=== PATIENT | female | born 1960 | race Caucasian/White ===

== ENCOUNTER 2016-06-06 22:38 | Emergency (ER) | payer BC ==
[2016-06-06] MEDS ORDERED: KETOROLAC TROMETHAMINE 30 MG/1 ML VIAL IM ONE (22:41)
[2016-06-06] MEDS ORDERED: KETOROLAC TROMETHAMINE 30 MG/1 ML VIAL ONE (22:45)
--- NOTE | 2016-06-06 22:50 | PDOC ---
History of Present Illness - General Chief Complaint: Bone Injury Stated Complaint: LEFT SHOULDER INJURY Time Seen by Provider: 06/06/16 22:40 History Source: Patient Exam Limitations: No Limitations - History of Present Illness Initial Comments: 06/06/16 22:45 56 Y F Osteoporosis and hypothyroid. fell 2/2 ice. no loc. landed on chest and lt arm. c/o pain at sites. in ed, in nad but in pain. denies head ache. vomiting. no chest pain. no sob. no parenthesis Occurred: reports: just prior to arrival Past History - Past Medical History Allergies/Adverse Reactions: Allergies Allergy/AdvReac Type Severity Reaction Status Date / Time erythromycin base Allergy Verified 06/06/16 22:42 [Erythromycin Base] propofol Allergy Verified 06/06/16 22:42 Home Medications: Ambulatory Orders Levothyroxine [Synthroid -] 100 mcg PO DAILY 01/12/12 Venlafaxine HCl [Effexor] 37.5 mg PO DAILY 01/12/12 Calcium Carbonate [Calcium] 1,200 mg PO HS 06/30/14 Ondansetron HCl [Zofran] 4 mg PO Q6H PRN #15 tablet 10/14/15 Asthma: Yes Psychiatric Problems: Yes (anxiety/depression) Thyroid Disease: Yes (HYPOTHYROIDISM) - Surgical History Appendectomy: Yes (02/11) - Psycho/Social/Smoking Cessation Hx Anxiety: No Suicidal Ideation: No Smoking Status: No Smoking History: Never smoked Number of Cigarettes Smoked Daily: 0 Hx Alcohol Use: No Drug/Substance Use Hx: No Substance Use Type: None Review of Systems - Review of Systems Able to Perform ROS?: Yes Is the patient limited Sinhala proficient: No Constitutional: No: Symptoms Reported HEENTM: No: Symptoms Reported Respiratory: No: Symptoms reported Cardiac (ROS): No: Symptoms Reported ABD/GI: No: Symptoms Reported Musculoskeletal: Yes: See HPI Neurological: No: Symptoms reported All Other Systems: Reviewed and Negative *Physical Exam - Physical Exam General Appearance: Yes: Nourished, Appropriately Dressed. No: Apparent Distress HEENT: positive: EOMI, SHARON Neck: positive: Supple. negative: Tender Respiratory/Chest: positive: Chest Tender (mild. sternal area no ecchymosis), Lungs Clear, Normal Breath Sounds. negative: Respiratory Distress Cardiovascular: positive: Regular Rhythm, Regular Rate Gastrointestinal/Abdominal: positive: Normal Bowel Sounds, Soft Musculoskeletal: positive: Normal Inspection. negative: Vertebral Tenderness Extremity: positive: Normal Capillary Refill, Normal Inspection. negative: Normal Range of Motion (ltd ROM lt arm 2/2 pain no obvipus deformity) Neurologic: positive: optical advisor II-XII NML intact, Fully Oriented, Alert, Normal Mood/ Affect, Normal Response, Motor Strength 5/5 ED Treatment Course - RADIOLOGY Radiology Studies Ordered: Category Date Time Status CHEST PA & LAT [RAD] Stat Radiology 06/06/16 22:41 Ordered HUMERUS-LEFT [RAD] Stat Radiology 06/06/16 22:40 Ordered SHOULDER-LEFT [RAD] Stat Radiology 06/06/16 22:40 Ordered *DC/Admit/Observation/Transfer Diagnosis at time of Disposition: Closed fracture of head of humerus Qualifiers: Encounter type: initial encounter Laterality: left Qualified Code(s): S42.292A - Other displaced fracture of upper end of left humerus, initial encounter for closed fracture - Discharge Dispostion Disposition: HOME Condition at time of disposition: Good Admit: No - Patient Instructions Additional Instructions: IBUPROFEN, 600 MG 3 TIMES A DAY USE SLING AT ALL TIMES REST ARM AT NIGHT PROMPTED BY PILLOWS ICE TO AREA ON AND OFF TONIGHT AND IN AM SEE YOUR ORTHOPEDIC SURGEON WEDNESDAY
[2016-06-06 23:05] VITALS: BMI 25.6
[2016-06-06] MEDS ORDERED: OXYCODONE/APAP 5/325MG COMBO TABLET PO ONE (23:42)
[2016-06-06] MEDS ORDERED: OXYCODONE/APAP 5/325MG COMBO TABLET ONE (23:43)
[2016-06-07 00:29] VITALS: BP 142/88; PULSE 90; TEMP 97.8
== END 2016-06-06 23:53 | disposition home or self-care (01) ==
LOC: FER 22:38
PROC: 3E0333Z Introduction of Anti-inflammatory into Peripheral Vein, Percutaneous Approach (ICD-10-PCS; principal; 2016-06-06)
DX: S42.292A Other displaced fracture of upper end of left humerus, initial encounter for closed fracture (principal); J45.909 Unspecified asthma, uncomplicated; F41.8 Other specified anxiety disorders; E03.9 Hypothyroidism, unspecified
CPT/HCPCS: 71020-TC; 73030-TC-LT; 73060-TC-LT; 99283-25

== ENCOUNTER 2016-06-12 22:32 | Emergency (ER) | payer BC ==
[2016-06-12 22:44] VITALS: BP 140/87; PULSE 90; TEMP 98; BMI 26.4
--- NOTE | 2016-06-12 22:46 | PDOC ---
History of Present Illness - General Chief Complaint: Shortness of Breath Stated Complaint: PAIN/SOB Time Seen by Provider: 06/12/16 22:40 History Source: Patient Exam Limitations: No Limitations - History of Present Illness Initial Comments: 06/12/16 22:41 This is a 56-year-old female who comes in complaining of left-sided chest pain and shortness of breath. Symptoms are acute onset this evening. Patient fell approximately one week ago fracturing her left shoulder/proximal humerus. Patient is is in a sling for the shoulder fracture. Patient said at the time of the fall that she did injure her sternum and chest area however she had x-rays done that were negative and she has been getting better until tonight when all of a sudden she had acute onset of severe which she describes as severe sharp left-sided chest pain with no radiation. Patient said she had some associated diaphoresis with it but no nausea. Patient said the pain is exacerbated by movement, palpation or taking a deep breath or coughing. Patient denies any phlegm associated with a cough. Patient denies any fevers or chills. Patient denies any other pain. PAST MEDICAL HISTORY: As per history of present illness PAST SURGICAL HISTORY: no significant history FAMILY HISTORY: no pertinant history SOCIAL HISTORY: Pt lives with family and is employed. MEDICATIONS: reviewed ALLERGIES: As per nursing notes Review of Systems General: No fevers or chills, no weakness, no weight loss HEENT: No change in vision. No sore throat,. No ear pain CardioVascular: Plus chest pain, plus shortness of breath Respiratory:No cough, or wheezing. Gastrointestinal: no nausea, vomitting, diarrhea or constipation, No rectal bleeding Genitourinary: No dysuria, hematuria, or frequency Musculoskeletal: No joint or muscle pain or swelling Neurologic: No headache, vertigo, dizziness or loss of consciousness Psychiatric: nor depression Skin: No rashes or easy bruising Endocrine: no increased thirst or abnormal weight change Allergic: no skin or latex allergy All other systems reviewed and normal Exam: General: Well-nourished well-developed individual, no acute distress HEENT: Throat: Normal, tonsils normal, no erythema or exudate Neck: Supple, no meningeal signs, no lymphadenopathy Eyes::Pupils equal reactive and round, extraocular motion intact Chest: Pain reproduced on palpation. Cardiac: S1-S2 normal, regular rate and rhythm, no murmurs rubs or gallops Respiratory: Lungs clear to auscultation bilateral however there is poor respiratory effort as patient complains of severe pain when attempting to take a deep breath. Abdomen: Soft, nondistended, normal bowel sounds, nontender to palpation diffusely Extremities: Warm, dry, no cyanosis, clubbing, or edema Skin: No rashes Neuro: Alert and oriented x3, nonfocal exam, grossly intact, normal gait Psych: Normal mood and affect EKG normal sinus rhythm at a rate of [address] abnormalities no acute ST -T wave changes CTA of the chest no pulmonary embolus some atelectasis otherwise no acute pathology Assessment and plan: This is a 56-year-old female who comes in with pleuritic type left-sided chest pain with shortness of breath. Patient had a fall recently and injured that side of her chest as well as her arm. This had been having significant amount of pain which appears to have been an adequately treated. As a result patient has been splinting with her respirations and has resulted in some atelectasis and possibly early infiltrate on CTA of the chest. There is no evidence of pulmonary embolism. Patient will be given incentive spirometer Started on some antibiotics to prevent further progression of any infection Given Percocet for pain And will follow-up with her primary care doctor early next week Cardiac causes were considered however patient's heart scores 2 which gives her a low likelihood and a risk factor of less than 1.6% that this is ACS. Past History - Past Medical History Allergies/Adverse Reactions: Allergies Allergy/AdvReac Type Severity Reaction Status Date / Time erythromycin base Allergy Verified 06/06/16 22:42 [Erythromycin Base] propofol Allergy Verified 06/06/16 22:42 Home Medications: Ambulatory Orders Levothyroxine [Synthroid -] 100 mcg PO DAILY 01/12/12 Venlafaxine HCl [Effexor] 37.5 mg PO DAILY 01/12/12 Calcium Carbonate [Calcium] 1,200 mg PO HS 06/30/14 Alendronate Na [Fosamax] 70 mg PO Q7D 06/12/16 Cholecalciferol (Vitamin D3) [Vitamin D3 -] 400 unit PO DAILY 06/12/16 Ibuprofen 600 mg PO PRN PRN 06/12/16 Oxycodone HCl 5 mg PO PRN PRN 06/12/16 Amox-Tr/K Cl [Augmentin - 500Mg Tablet] 1 tab PO BID #20 tablet 06/13/16 Oxycodone HCl/Acetaminophen [Percocet 5-325 mg Tablet] 1 - 2 tab PO Q4H #20 tablet MDD 8 06/13/16 Asthma: Yes Psychiatric Problems: Yes (anxiety/depression) Thyroid Disease: Yes (HYPOTHYROIDISM) - Surgical History Appendectomy: Yes (02/11) - Psycho/Social/Smoking Cessation Hx Anxiety: No Suicidal Ideation: No Smoking Status: No Smoking History: Never smoked Number of Cigarettes Smoked Daily: 0 Hx Alcohol Use: No Drug/Substance Use Hx: No Substance Use Type: None Heart Score/ECG Review - History History: Slightly suspicious - Electrocardiogram EKG: Non specific repolarization disturbance - Age Age: 45-65 - Risk Factors Based on the list above the patient has:: No risk factors known - Troponin Troponin: </= normal limit - Score Heart Score - Total: 2 ED Treatment Course - LABORATORY CBC & Chemistry Diagram: 06/12/16 23:03 06/12/16 23:03 *DC/Admit/Observation/Transfer Diagnosis at time of Disposition: Pleuritic chest pain - Discharge Dispostion Disposition: HOME Condition at time of disposition: Stable Admit: No - Prescriptions Prescriptions: Amox-Tr/K Cl [Augmentin - 500Mg Tablet] 1 tab PO BID #20 tablet Oxycodone HCl/Acetaminophen [Percocet 5-325 mg Tablet] 1 - 2 tab PO Q4H #20 tablet MDD 8 - Patient Instructions Additional Instructions: Cardiac Problem or use your incentive spirometer 8-10 times a day to make sure that you fully expand her lungs and prevent any additional infection or problems. For the pain take Percocet U can take one to 2 tablets as often as every 4-6 hours if needed. The Percocet will make you drowsy as well as make you constipated so if you take a Percocet you should not go to work, drive or do things that require concentration. If you have not had a bowel movement for more than one day you should take a [id number] laxative such as MiraLAX. Follow-up with your primary care doctor early next week for reevaluation if you still have any symptoms To prevent infection or progression of any infection that may have started take Augmentin one tablet twice a day for 10 days. Return to the emergency department immediately with ANY new, persistent or worsening symptoms. Continue any medications as previously prescribed by your physician. You should follow up with your primary doctor as soon as possible regarding today's emergency department visit. . Please make sure your doctor reviews the results of your emergency evaluation. Thank you for coming to the Emergency Department today for your care. It was a pleasure to see you today. Please note that your evaluation is INCOMPLETE until you follow-up with your doctor.
[2016-06-12] MEDS ORDERED: morphine CARPU-JECT 4 MG/1 ML DISP.SYRIN IVPUSH ONE (22:47)
[2016-06-12] MEDS ORDERED: KETOROLAC TROMETHAMINE 30 MG/1 ML VIAL IVPUSH ONE (22:47)
[2016-06-12 23:16] LABS: BASOPHIL 0.6 % (0-2.0); EOSINOPHIL 1.8 % (0-4.5); MCH 29.4 pg (25.7-33.7); MCHC 32.4 g/dl (32.0-36.0); MEAN CELL VOLUME 90.6 fl (80-96); MEAN PLT VOLUME 8.5 fl (7.5-11.1); NEUTROPHILS 58.1 % (42.8-82.8); PLATELET COUNT 256 K/MM3 (134-434); RDW 12.3 % (11.6-15.6); WHITE BLOOD COUNT 7.4 K/mm3 (4.0-10.0)
[2016-06-12 23:28] LABS: ALK PHOS 83 U/L (32-92); ANION GAP 5 (8-16); CALCIUM 9.1 mg/dl (8.4-10.2); CO2 30 mmol/L (22-28); CREATININE 0.6 mg/dl (0.6-1.3); GLUCOSE,RANDOM 103 mg/dl (74-106); SGOT/AST 22 U/L (10-42); SGPT/ALT 16 U/L (10-40); TOT PROT 6.5 g/dl (6.4-8.3)
[2016-06-12 23:29] LABS: CPK(DFH) 60 IU/L (26-140)
[2016-06-12 23:43] LABS: BILIRUBIN,TOTAL < 0.2 mg/dl (0.2-1.0)
[2016-06-12 23:44] LABS: TROPONIN I (DFP) < 0.03 ng/ml (0.03-0.50)
--- NOTE | 2016-06-13 16:20 | EKG ---
Test Reason : Blood Pressure : / mmHG Vent. Rate : 087 BPM Atrial Rate : 087 BPM P-R Int : 122 ms QRS Dur : 078 ms QT Int : 370 ms P-R-T Axes : 051 042 057 degrees QTc Int : 445 ms NORMAL SINUS RHYTHM NONSPECIFIC ST ABNORMALITY ABNORMAL ECG NO PREVIOUS ECGS AVAILABLE Confirmed by HOLLI DAVE, SANTOSH ([id number]) on 06/13/2016 4:20:07 PM Referred By: MD CONNELLY Confirmed By:SANTOSH DE LA GARZA MD
== END 2016-06-13 01:43 | disposition home or self-care (01) ==
LOC: FER 22:32
PROC: 3E0233Z Introduction of Anti-inflammatory into Muscle, Percutaneous Approach (ICD-10-PCS; principal; 2016-06-12)
PROC: 3E023NZ Introduction of Analgesics, Hypnotics, Sedatives into Muscle, Percutaneous Approach (ICD-10-PCS; 2016-06-12)
DX: R07.81 Pleurodynia (principal); J45.909 Unspecified asthma, uncomplicated; E03.9 Hypothyroidism, unspecified; F41.8 Other specified anxiety disorders
CPT/HCPCS: 36415; 71275-TC; 80053; 82550; 84484; 85025; 93005; 99283-25

== ENCOUNTER 2020-12-17 13:39 | Emergency (ER) | payer BC ==
[2020-12-17] MEDS ORDERED: ALBUTEROL SO4 2.5/IPRATROPIUM 0.5 INH SOL 3 ML VIAL.NEB. NEB ONE ×2 (13:48→13:54)
[2020-12-17 13:56] VITALS: BP 143/92; PULSE 88; TEMP 98.1; BMI 26.6
== END 2020-12-17 14:50 | disposition home or self-care (01) ==
LOC: FER 13:39
PROC: 3E0F7GC Introduction of Other Therapeutic Substance into Respiratory Tract, Via Natural or Artificial Opening (ICD-10-PCS; principal; 2020-12-17)
DX: J45.901 Unspecified asthma with (acute) exacerbation (principal)
CPT/HCPCS: 71046-TC-FY; 93005; 99285-25; C9803; U0003; U0005

== ENCOUNTER 2022-01-27 18:46 | Emergency (ER) | payer BC ==
[2022-01-27 19:05] VITALS: RESP 20; BMI 28.3
[2022-01-27 19:19] VITALS: BP 125/76; PULSE 90; TEMP 98.9
== END 2022-01-27 19:35 | disposition home or self-care (01) ==
LOC: FER 18:46
DX: J02.9 Acute pharyngitis, unspecified (principal); R05.9 Cough, unspecified
CPT/HCPCS: 0241U-QW; 99283-25

== ENCOUNTER 2022-03-13 18:33 | Emergency (ER) | payer BC ==
[2022-03-13] MEDS ORDERED: KETOROLAC TROMETHAMINE 30 MG/1 ML VIAL IM ONE (18:50)
[2022-03-13] MEDS ORDERED: CYCLOBENZAPRINE HCL 5 MG TABLET PO ONE (18:51)
[2022-03-13] MEDS ORDERED: LIDOCAINE 5% TOPICAL PATCH TP ONE (18:51)
[2022-03-13] MEDS ORDERED: KETOROLAC TROMETHAMINE 30 MG/1 ML VIAL ONE (18:56)
[2022-03-13] MEDS ORDERED: CYCLOBENZAPRINE HCL 5 MG TABLET ONE (18:56)
[2022-03-13] MEDS ORDERED: LIDOCAINE 5% TOPICAL PATCH ONE (18:56)
[2022-03-13 19:02] VITALS: BP 144/78; PULSE 92; RESP 18; TEMP 98; BMI 27.9
== END 2022-03-13 19:57 | disposition home or self-care (01) ==
LOC: FER 18:33
PROC: 3E0233Z Introduction of Anti-inflammatory into Muscle, Percutaneous Approach (ICD-10-PCS; principal; 2022-03-13)
DX: R07.89 Other chest pain (principal); S30.0XXA Contusion of lower back and pelvis, initial encounter; W19.XXXA Unspecified fall, initial encounter; Y92.9 Unspecified place or not applicable
CPT/HCPCS: 71101-TC-LT-FY; 72170-TC-FY; 73502-TC-LT-FY; 99284-25

== ENCOUNTER 2022-08-13 17:30 | Observation (INO) | payer BC ==
[2022-08-13] MEDS ORDERED: ALBUTEROL SO4 2.5/IPRATROPIUM 0.5 INH SOL 3 ML VIAL.NEB. NEB ONE ×3 (18:10→20:26)
[2022-08-13 18:51] LABS: HEMATOCRIT 38.1 % (32.4-45.2); HEMOGLOBIN 12.8 G/dL (10.7-15.3); MCH 30.3 pg (25.7-33.7); MCHC 33.6 g/dl (32.0-36.0); MEAN CELL VOLUME 90.2 fl (80-96); MEAN PLT VOLUME 8.6 fl (7.5-11.1); PLATELET COUNT 220.9 10^3/uL (134-434); RBC 4.22 10^6/uL (3.60-5.2); RDW 14.3 % (11.6-15.6); WHITE BLOOD COUNT 6.5 10^3/uL (4.0-10.8)
[2022-08-13 19:09] LABS: PLATELET ESTIMATE ADEQUATE
[2022-08-13 19:09] LABS: ALBUMIN 3.9 g/dl (3.4-5.0); BILIRUBIN,TOTAL 0.2 mg/dl (0.2-1); CALCIUM 8.8 mg/dl (8.5-10); CREATININE 0.7 mg/dl (0.55-1.3); TOT PROT 6.9 g/dl (6.4-8.2)
[2022-08-13] MEDS ORDERED: POTASSIUM CHLORIDE TABS 20 MEQ TABLET.ER (FP) PO ONE ×4 (21:38→22:31)
[2022-08-13] MEDS ORDERED: KCL 10 MEQ IVPB 10 MEQ/100 ML INFUS.BAG IVPB SCH ×2 (21:45→22:30)
[2022-08-13] MEDS ORDERED: KCL 10 MEQ IVPB 10 MEQ/100 ML INFUS.BAG IVPB ONE ×2 (21:46→22:31)
[2022-08-14] MEDS ORDERED: ALBUTEROL SO4 2.5/IPRATROPIUM 0.5 INH SOL 3 ML VIAL.NEB. NEB PRN
[2022-08-14] MEDS ORDERED: ACETAMINOPHEN 325 MG TABLET (FP) PO PRN (00:46)
[2022-08-14 02:46] VITALS: BMI 27.8
[2022-08-14] MEDS: LEVOTHYROXINE NA 100 MCG TABLET (FP) PO SCH (07:00)
[2022-08-14 09:01] LABS: CALCIUM 8.4 mg/dl (8.5-10); CREATININE 0.6 mg/dl (0.55-1.3)
[2022-08-14] MEDS: VENLAFAXINE HCL 75 MG E.R. CAPSULES PO SCH ×2 (09:27→22:14)
[2022-08-14] MEDS ORDERED: ALBUTEROL SO4 HFA INHALER IH PRN (10:54)
[2022-08-14] MEDS: POLYETHYLENE GLYCOL (HEALTHYLAX) 3350 17 GM PACKET PO SCH ×2 (11:35→22:13)
[2022-08-14] MEDS: FLUTICASONE PROP 0.05% 16 GM NASAL SPRAY NS SCH (11:35)
[2022-08-14] MEDS: FAMOTIDINE 20 MG TABLET PO SCH (11:35)
[2022-08-14 12:00] LABS: BASO % 0.6 % (0-2.0); EOS % 1.6 % (0-4.5); HEMATOCRIT 35.3 % (32.4-45.2); HEMOGLOBIN 11.9 GM/dL (10.7-15.3); LYMPH % 24.4 % (8-40); MCH 30.3 pg (25.7-33.7); MCHC 33.5 g/dl (32.0-36.0); MEAN CELL VOLUME 90.3 fl (80-96); MEAN PLT VOLUME 9.1 fl (7.5-11.1); NEUT % 55.4 % (42.8-82.8); PLATELET COUNT 220 10^3/uL (134-434); RBC 3.91 M/mm3 (3.60-5.2); RDW 13.6 % (11.6-15.6)
[2022-08-14] MEDS: DOCUSATE SODIUM 100 MG CAPSULE (FP) PO SCH ×2 (13:30→22:13)
[2022-08-14] MEDS: methylPREDNISolone NA SUCC 40 MG/1 ML VIAL IVPUSH SCH ×2 (17:22→20:23)
[2022-08-14] MEDS: ALBUTEROL SO4 2.5/IPRATROPIUM 0.5 INH SOL 3 ML VIAL.NEB. NEB SCH (20:23)
[2022-08-14] MEDS ORDERED: PATIENT'S OWN MEDICATION (NON-FORMULARY) (Mirtazapine [Mirtazapine] 7.5 MG Tablet) PO SCH (22:00)
[2022-08-14] MEDS: MIRTAZAPINE 15 MG TABLET (FP) PO SCH (22:13)
[2022-08-14] MEDS: ROSUVASTATIN CA 10 MG TABLET PO SCH (22:14)
[2022-08-15] MEDS: methylPREDNISolone NA SUCC 40 MG/1 ML VIAL IVPUSH SCH ×3 (02:24→17:31)
[2022-08-15] MEDS: DOCUSATE SODIUM 100 MG CAPSULE (FP) PO SCH (06:25)
[2022-08-15] MEDS: LEVOTHYROXINE NA 100 MCG TABLET (FP) PO SCH (06:33)
[2022-08-15 09:17] LABS: ALBUMIN 3.6 g/dl (3.4-5.0); BILIRUBIN,TOTAL 0.2 mg/dl (0.2-1); CALCIUM 9.1 mg/dl (8.5-10); CREATININE 0.5 mg/dl (0.55-1.3); TOT PROT 6.7 g/dl (6.4-8.2)
[2022-08-15] MEDS: FAMOTIDINE 20 MG TABLET PO SCH (09:35)
[2022-08-15] MEDS: ALBUTEROL SO4 2.5/IPRATROPIUM 0.5 INH SOL 3 ML VIAL.NEB. NEB SCH ×3 (09:36→21:00)
[2022-08-15] MEDS: VENLAFAXINE HCL 75 MG E.R. CAPSULES PO SCH ×2 (09:36→21:06)
[2022-08-15] MEDS: FLUTICASONE PROP 0.05% 16 GM NASAL SPRAY NS SCH (09:37)
[2022-08-15] MEDS: POLYETHYLENE GLYCOL (HEALTHYLAX) 3350 17 GM PACKET PO SCH (09:37)
[2022-08-15 10:17] LABS: HEMOGLOBIN 12.5 GM/dL (10.7-15.3); MCH 30.6 pg (25.7-33.7); MCHC 34.7 g/dl (32.0-36.0); MEAN CELL VOLUME 88.2 fl (80-96); MEAN PLT VOLUME 9.4 fl (7.5-11.1); PLATELET COUNT 234 10^3/uL (134-434); RBC 4.09 M/mm3 (3.60-5.2); RDW 13.5 % (11.6-15.6); WHITE BLOOD COUNT 3.8 K/mm3 (4.0-10.0)
[2022-08-15 11:09] LABS: LYMPH % 16.2 % (8-40); NEUT % 80.9 % (42.8-82.8)
[2022-08-15 11:10] LABS: BASO % 0.4 % (0-2.0); MONO % 2.5 % (3.8-10.2)
[2022-08-15] MEDS ORDERED: LEVOTHYROXINE NA 100 MCG TABLET (FP) PO SCH (13:29)
[2022-08-15] MEDS ORDERED: MENTHOL/PHENOL 1 EACH UD MM PRN (13:30)
[2022-08-15 17:35] LABS: EPITHELIAL CELLS RARE /hpf
[2022-08-15] MEDS: ROSUVASTATIN CA 10 MG TABLET PO SCH (21:06)
[2022-08-15] MEDS: MIRTAZAPINE 15 MG TABLET (FP) PO SCH (21:06)
[2022-08-16] MEDS: methylPREDNISolone NA SUCC 40 MG/1 ML VIAL IVPUSH SCH ×2 (01:53→10:10)
[2022-08-16] MEDS ORDERED: LEVOTHYROXINE NA 50 MCG TABLET (FP) PO ONE (07:00)
[2022-08-16 09:00] LABS: CALCIUM 8.8 mg/dl (8.5-10); CREATININE 0.5 mg/dl (0.55-1.3)
[2022-08-16] MEDS ORDERED: RALOXIFENE HCL 60 MG PO SCH (10:00)
[2022-08-16 10:08] VITALS: PULSE 100; RESP 17
[2022-08-16] MEDS: ALBUTEROL SO4 2.5/IPRATROPIUM 0.5 INH SOL 3 ML VIAL.NEB. NEB SCH ×2 (10:10→13:22)
[2022-08-16] MEDS: VENLAFAXINE HCL 75 MG E.R. CAPSULES PO SCH (10:10)
[2022-08-16] MEDS: FAMOTIDINE 20 MG TABLET PO SCH (10:10)
[2022-08-16] MEDS: FLUTICASONE PROP 0.05% 16 GM NASAL SPRAY NS SCH (10:11)
[2022-08-16 13:26] VITALS: BP 146/72; TEMP 97.9
[2022-08-17] MEDS ORDERED: LEVOTHYROXINE NA 100 MCG TABLET (FP) PO SCH (07:00)
== END 2022-08-16 15:44 | disposition home or self-care (01) ==
LOC: FER 17:30 → FM/S 22:50 → UNDOADMOB 08-14 00:08 → FM/S 08-14 00:08
PROVIDERS: ADMIT Internal Medicine; ATTEND Nurse Practitioner Family
PROC: 3E033GC Introduction of Other Therapeutic Substance into Peripheral Vein, Percutaneous Approach (ICD-10-PCS; principal; 2022-08-13)
PROC: 3E0337Z Introduction of Electrolytic and Water Balance Substance into Peripheral Vein, Percutaneous Approach (ICD-10-PCS; 2022-08-13)
PROC: 3E0F7SF Introduction of Other Gas into Respiratory Tract, Via Natural or Artificial Opening (ICD-10-PCS; 2022-08-13)
DX: J20.9 Acute bronchitis, unspecified (principal); E87.6 Hypokalemia; R05.9 Cough, unspecified; I10 Essential (primary) hypertension; F32.A Depression, unspecified; F41.9 Anxiety disorder, unspecified; E03.9 Hypothyroidism, unspecified; R00.0 Tachycardia, unspecified; E07.9 Disorder of thyroid, unspecified; E11.9 Type 2 diabetes mellitus without complications; J06.9 Acute upper respiratory infection, unspecified; K59.00 Constipation, unspecified; K21.9 Gastro-esophageal reflux disease without esophagitis; E87.5 Hyperkalemia; Z86.16 Personal history of COVID-19; Z88.1 Allergy status to other antibiotic agents; Z88.8 Allergy status to other drugs, medicaments and biological substances
CPT/HCPCS: 0241U-QW; 36415; 71275-TC; 80048; 80053; 81003; 81015; 83735; 83880; 84132; 85025; 85027; 87045; 87046; 87205; 87324; 87449; 93005; 94640; 99285-25; G0378; Q9967

== ENCOUNTER 2022-10-29 17:25 | Emergency (ER) | payer BC ==
[2022-10-29 17:40] VITALS: RESP 18; TEMP 98.9; BMI 26.4
[2022-10-29] MEDS ORDERED: SODIUM CHLORIDE 1,000 ML IV ONE (17:47)
[2022-10-29 18:09] LABS: HEMATOCRIT 41.1 % (32.4-45.2); MCH 31.2 pg (25.7-33.7); MCHC 34.1 g/dl (32.0-36.0); MEAN CELL VOLUME 91.6 fl (80-96); MEAN PLT VOLUME 8.9 fl (7.5-11.1); PLATELET COUNT 288.6 10^3/uL (134-434); RBC 4.49 10^6/uL (3.60-5.2); RDW 14.3 % (11.6-15.6); WHITE BLOOD COUNT 8.5 10^3/uL (4.0-10.8)
[2022-10-29 18:23] LABS: ALBUMIN 4.2 g/dl (3.4-5.0); BILIRUBIN,TOTAL 0.2 mg/dl (0.2-1); CALCIUM 9.4 mg/dl (8.5-10); CREATININE 0.8 mg/dl (0.55-1.3); TOT PROT 7.3 g/dl (6.4-8.2)
[2022-10-29 18:28] LABS: POTASSIUM 2.9 mmol/L (3.5-5.1)
[2022-10-29] MEDS ORDERED: KCL 10 MEQ IVPB 20 MEQ/200 ML INFUS.BAG IVPB ONE (19:01)
[2022-10-29] MEDS ORDERED: POTASSIUM CHLORIDE TABS 20 MEQ TABLET.ER (FP) PO ONE ×4 (20:35→22:28)
[2022-10-29 21:21] VITALS: BP 130/83; PULSE 90
== END 2022-10-29 22:35 | disposition home or self-care (01) ==
LOC: FER 17:25
PROC: 3E033GC Introduction of Other Therapeutic Substance into Peripheral Vein, Percutaneous Approach (ICD-10-PCS; principal; 2022-10-29)
PROC: 3E0337Z Introduction of Electrolytic and Water Balance Substance into Peripheral Vein, Percutaneous Approach (ICD-10-PCS; 2022-10-29)
DX: R05.1 Acute cough (principal); R09.81 Nasal congestion; R19.7 Diarrhea, unspecified; E87.6 Hypokalemia
CPT/HCPCS: 36415; 71275-TC; 80053; 83735; 84132; 85027; 87635; 93005; 99285-25; Q9967

== ENCOUNTER 2023-03-18 22:14 | Emergency (ER) | payer BC ==
[2023-03-18 22:19] VITALS: BMI 26.4
[2023-03-18] MEDS ORDERED: ONDANSETRON 4 MG/2 ML VIAL IVPUSH ONE (22:49)
[2023-03-18] MEDS ORDERED: ACETAMINOPHEN 1000 MG/100 ML BAG IVPB ONE (22:49)
[2023-03-18] MEDS ORDERED: SODIUM CHLORIDE 1,000 ML IV STA (22:49)
[2023-03-18] MEDS ORDERED: ONDANSETRON 4 MG/2 ML VIAL ONE (22:53)
[2023-03-18 22:54] LABS: HEMATOCRIT 43.4 % (32.4-45.2); HEMOGLOBIN 14.5 G/dL (10.7-15.3); MCHC 33.3 g/dl (32.0-36.0); MEAN CELL VOLUME 93.2 fl (80-96); PLATELET COUNT 254.2 10^3/uL (134-434); RBC 4.66 10^6/uL (3.60-5.2); RDW 14.2 % (11.6-15.6); WHITE BLOOD COUNT 16.5 10^3/uL (4.0-10.8)
[2023-03-18] MEDS ORDERED: ACETAMINOPHEN INJECTION 100 ML IVPB ONE (22:54)
[2023-03-18 23:17] LABS: PLATELET ESTIMATE ADEQUATE
[2023-03-19 00:21] LABS: POTASSIUM 3.5 mmol/L (3.5-5.1)
[2023-03-19 00:22] LABS: CALCIUM 8.8 mg/dL (8.5-10.1)
[2023-03-19 00:23] LABS: ALBUMIN 3.8 g/dl (3.4-5.0); BLOOD UREA NITROGEN 17.1 mg/dL (7-18); MAGNESIUM 2.2 mg/dL (1.8-2.4)
[2023-03-19 00:26] LABS: CREATININE 0.7 mg/dL (0.55-1.3)
[2023-03-19 00:28] LABS: BILIRUBIN,TOTAL 0.3 mg/dL (0.2-1); TOT PROT 7.2 g/dl (6.4-8.2)
[2023-03-19 02:21] VITALS: BP 126/76; PULSE 94; RESP 16; TEMP 98.6
== END 2023-03-19 03:11 | disposition home or self-care (01) ==
LOC: FER 22:14
PROC: 3E033NZ Introduction of Analgesics, Hypnotics, Sedatives into Peripheral Vein, Percutaneous Approach (ICD-10-PCS; principal; 2023-03-18)
PROC: 3E033GC Introduction of Other Therapeutic Substance into Peripheral Vein, Percutaneous Approach (ICD-10-PCS; 2023-03-18)
PROC: 3E0337Z Introduction of Electrolytic and Water Balance Substance into Peripheral Vein, Percutaneous Approach (ICD-10-PCS; 2023-03-18)
DX: R10.32 Left lower quadrant pain (principal); K59.00 Constipation, unspecified; R11.0 Nausea; K52.9 Noninfective gastroenteritis and colitis, unspecified
CPT/HCPCS: 36415; 74177-TC; 80053; 81003; 81015; 83735; 85027; 87086; 99285-25; Q9967

== ENCOUNTER 2023-03-20 08:59 | Emergency (ER) | payer BC ==
[2023-03-20] MEDS ORDERED: IBUPROFEN 400 MG TABLET (FP) PO ONE ×2 (09:15→09:25)
[2023-03-20 09:23] VITALS: BP 136/80; PULSE 82; RESP 18; TEMP 98.6; BMI 26.4
== END 2023-03-20 10:29 | disposition home or self-care (01) ==
LOC: FER 08:59
DX: R05.9 Cough, unspecified (principal); R09.81 Nasal congestion; R59.9 Enlarged lymph nodes, unspecified; J02.9 Acute pharyngitis, unspecified; K59.00 Constipation, unspecified; Z20.822 Contact with and (suspected) exposure to COVID-19
CPT/HCPCS: 0241U-QW; 87651; 99283-25

== ENCOUNTER 2023-05-03 01:04 | Inpatient (IN) | payer BC ==
[2023-05-03 01:10] VITALS: BMI 27.1
[2023-05-03] MEDS ORDERED: PANTOPRAZOLE SODIUM 40 MG VIAL IVPUSH ONE (01:16)
[2023-05-03] MEDS ORDERED: ONDANSETRON 4 MG/2 ML VIAL IVPB ONE (01:17)
[2023-05-03] MEDS ORDERED: SODIUM CHLORIDE 1,000 ML IV ONE ×2 (01:26→06:26)
[2023-05-03] MEDS ORDERED: morphine CARPU-JECT 4 MG/1 ML DISP.SYRIN IVPUSH ONE ×2 (01:26→03:56)
[2023-05-03] MEDS ORDERED: morphine SULFATE 4 MG/ML VIAL ONE ×2 (01:29→04:11)
[2023-05-03] MEDS ORDERED: ONDANSETRON 4 MG/2 ML VIAL ONE (01:29)
[2023-05-03] MEDS ORDERED: PANTOPRAZOLE SODIUM 40 MG VIAL ONE (01:30)
[2023-05-03] MEDS ORDERED: ACETAMINOPHEN INJECTION 100 ML IVPB ONE (01:34)
[2023-05-03] MEDS ORDERED: ACETAMINOPHEN 1000 MG/100 ML BAG IVPB ONE (01:34)
[2023-05-03 02:30] LABS: HEMATOCRIT 42.8 % (32.4-45.2); HEMOGLOBIN 14.2 GM/dL (10.7-15.3); MCH 30.5 pg (25.7-33.7); MCHC 33.2 g/dl (32.0-36.0); MEAN CELL VOLUME 91.8 fl (80-96); PLATELET COUNT 302 10^3/uL (134-434); RBC 4.67 M/mm3 (3.60-5.2); RDW 14.2 % (11.6-15.6); WHITE BLOOD COUNT 15.1 K/mm3 (4.0-10.0)
[2023-05-03 02:51] LABS: POTASSIUM 3.2 mmol/L (3.5-5.1)
[2023-05-03 02:53] LABS: CALCIUM 9.1 mg/dL (8.5-10.1)
[2023-05-03 02:54] LABS: BLOOD UREA NITROGEN 12.7 mg/dL (7-18); MAGNESIUM 2.2 mg/dL (1.8-2.4)
[2023-05-03] MEDS ORDERED: POTASSIUM CHLORIDE TABS 20 MEQ TABLET.ER (FP) PO ONE ×2 (02:54→04:12)
[2023-05-03 02:57] LABS: CREATININE 0.7 mg/dL (0.55-1.3); PHOSPHOROUS 4.3 mg/dL (2.5-4.9)
[2023-05-03 02:58] LABS: TOT PROT 7.3 g/dl (6.4-8.2)
[2023-05-03 02:59] LABS: BILIRUBIN,TOTAL 0.3 mg/dL (0.2-1)
[2023-05-03] MEDS ORDERED: PIPERACILLIN/TAZOB 4.5 GM 4.5 GM in DEXTROSE 5%-WATER 100 ML IVPB ONE (06:05)
[2023-05-03] MEDS ORDERED: ACETAMINOPHEN 1000 MG/100 ML BAG IVPB PRN (07:25)
[2023-05-03] MEDS ORDERED: ONDANSETRON 4 MG/2 ML VIAL IVPUSH PRN (07:26)
[2023-05-03] MEDS ORDERED: LEVOTHYROXINE SODIUM 100 MCG 5 ML VIAL IVPUSH ONE (08:00)
[2023-05-03] MEDS: LACTATED RINGERS SOLUTION 1,000 ML/1,000 ML INFUS.BAG IV SCH (13:36)
[2023-05-03 15:00] LABS: ALBUMIN 3.4 g/dl (3.4-5.0); BILIRUBIN,TOTAL 0.3 mg/dl (0.2-1); CALCIUM 8.3 mg/dl (8.5-10.1); CREATININE 0.6 mg/dl (0.6-1.3); POTASSIUM 3.4 mmol/L (3.5-5.1); TOT PROT 5.3 g/dl (6.4-8.2)
[2023-05-03 16:51] LABS: HEMOGLOBIN 12.2 GM/dL (10.7-15.3); MCH 30.9 pg (25.7-33.7); MEAN CELL VOLUME 93.5 fl (80-96); MEAN PLT VOLUME 9.2 fl (7.5-11.1); PLATELET COUNT 256 10^3/uL (134-434); RBC 3.96 M/mm3 (3.60-5.2); RDW 14.3 % (11.6-15.6); WHITE BLOOD COUNT 10.6 K/mm3 (4.0-10.0)
[2023-05-03 18:19] LABS: EOS % 0.9 % (0-4.5); LYMPH % 19.4 % (8-40); MONO % 7.4 % (3.8-10.2); NEUT % 71.3 % (42.8-82.8)
[2023-05-04 08:24] LABS: ALBUMIN 3.3 g/dl (3.4-5.0); BILIRUBIN,TOTAL 0.3 mg/dl (0.2-1); CALCIUM 8.2 mg/dl (8.5-10.1); CREATININE 0.6 mg/dl (0.6-1.3); POTASSIUM 3.4 mmol/L (3.5-5.1); TOT PROT 5.2 g/dl (6.4-8.2)
[2023-05-04 09:16] LABS: BASO % 0.3 % (0-2.0); EOS % 1.7 % (0-4.5); HEMATOCRIT 37.4 % (32.4-45.2); HEMOGLOBIN 12.1 GM/dL (10.7-15.3); LYMPH % 14.6 % (8-40); MCH 30.2 pg (25.7-33.7); MCHC 32.3 g/dl (32.0-36.0); MEAN CELL VOLUME 93.4 fl (80-96); MEAN PLT VOLUME 8.8 fl (7.5-11.1); MONO % 5.5 % (3.8-10.2); NEUT % 77.9 % (42.8-82.8); PLATELET COUNT 253 10^3/uL (134-434); RDW 14.1 % (11.6-15.6); WHITE BLOOD COUNT 13.2 K/mm3 (4.0-10.0)
[2023-05-04] MEDS ORDERED: KCL 10 MEQ IVPB 10 MEQ/100 ML INFUS.BAG IVPB SCH (09:30)
[2023-05-04] MEDS: LACTATED RINGERS SOLUTION 1,000 ML/1,000 ML INFUS.BAG IV SCH (09:33)
[2023-05-04] MEDS ORDERED: POTASSIUM CHLORIDE TABS 20 MEQ TABLET.ER (FP) PO ONE (10:23)
[2023-05-05 06:45] VITALS: RESP 18
[2023-05-05 10:36] LABS: ALBUMIN 3.4 g/dl (3.4-5.0); BILIRUBIN,TOTAL 0.3 mg/dl (0.2-1); CALCIUM 8.3 mg/dl (8.5-10.1); CREATININE 0.6 mg/dl (0.6-1.3); POTASSIUM 3.7 mmol/L (3.5-5.1); TOT PROT 5.3 g/dl (6.4-8.2)
[2023-05-05 11:07] LABS: BASO % 0.6 % (0-2.0); EOS % 4.3 % (0-4.5); HEMOGLOBIN 11.6 GM/dL (10.7-15.3); LYMPH % 31.2 % (8-40); MCH 31.6 pg (25.7-33.7); MEAN CELL VOLUME 92.8 fl (80-96); MEAN PLT VOLUME 8.8 fl (7.5-11.1); MONO % 9.7 % (3.8-10.2); NEUT % 54.2 % (42.8-82.8); PLATELET COUNT 235 10^3/uL (134-434); RBC 3.66 M/mm3 (3.60-5.2); RDW 13.8 % (11.6-15.6); WHITE BLOOD COUNT 5.7 K/mm3 (4.0-10.0)
[2023-05-05 12:43] VITALS: BP 118/59; PULSE 74; TEMP 98.1
== END 2023-05-05 14:01 | disposition home or self-care (01) | DRG 390 ==
LOC: FER 01:04 → FM/S 06:01
PROVIDERS: ADMIT Internal Medicine
DX: K56.609 Unspecified intestinal obstruction, unspecified as to partial versus complete obstruction (principal); I10 Essential (primary) hypertension; E78.5 Hyperlipidemia, unspecified; E03.9 Hypothyroidism, unspecified; R73.03 Prediabetes
CPT/HCPCS: 36415; 71045-TC-FY; 74018-TC-FY; 74177-TC; 80053; 82550; 82962; 83690; 83735; 84100; 84439; 84443; 84484; 85025; 85027; 87635; 93005; 99285-25; Q9967

== ENCOUNTER 2024-01-26 19:13 | Emergency (ER) | payer BC ==
[2024-01-26 19:31] VITALS: BP 105/91; PULSE 90; RESP 18; TEMP 98.8; BMI 27.4
[2024-01-26] MEDS ORDERED: HYDROmorphone HCL/PF 1 MG/ML VIAL ONE (20:42)
[2024-01-26] MEDS: HYDROmorphone HCl 2 MG/ML VIAL IVPB STA (21:01)
[2024-01-26 21:21] LABS: HEMATOCRIT 37.3 % (32.4-45.2); HEMOGLOBIN 12.2 G/dL (10.7-15.3); MCH 29.5 pg (25.7-33.7); MCHC 32.7 g/dl (32.0-36.0); MEAN CELL VOLUME 90.4 fl (80-96); MEAN PLT VOLUME 10.3 fl (7.5-11.1); PLATELET COUNT 323.6 10^3/uL (134-434); RBC 4.13 10^6/uL (3.60-5.2); RDW 14.7 % (11.6-15.6); WHITE BLOOD COUNT 12.9 10^3/uL (4.0-10.8)
[2024-01-26 21:45] LABS: ALBUMIN 4.2 g/dl (3.4-5.0); BILIRUBIN,TOTAL 0.5 mg/dl (0.2-1); CALCIUM 9.5 mg/dl (8.5-10.1); CREATININE 0.7 mg/dl (0.6-1.3); MAGNESIUM 2.2 mg/dL (1.8-2.4); TOT PROT 7.7 g/dl (6.4-8.2)
[2024-01-26 21:46] LABS: POTASSIUM 3.7 mmol/L (3.5-5.1)
[2024-01-26] MEDS ORDERED: PIPERACILLIN/TAZOBACTAM 3.375 GM VIAL IVPB ONE (22:10)
[2024-01-26] MEDS: PIPERACILLIN/TAZOB 3.375 GM 3.375 GM in DEXTROSE 5%-WATER - 50 ML IVPB ONE (22:19)
== END 2024-01-27 00:40 | disposition home or self-care (01) ==
LOC: FER 19:13
PROC: 3E03329 Introduction of Other Anti-infective into Peripheral Vein, Percutaneous Approach (ICD-10-PCS; principal; 2024-01-26)
PROC: 3E033NZ Introduction of Analgesics, Hypnotics, Sedatives into Peripheral Vein, Percutaneous Approach (ICD-10-PCS; 2024-01-26)
DX: J01.20 Acute ethmoidal sinusitis, unspecified (principal)
CPT/HCPCS: 36415; 70450-TC; 70480-TC; 70486-TC; 80053; 81003; 81015; 83605; 83735; 85027; 99284-25

== ENCOUNTER 2024-05-01 17:00 | Inpatient (IN) | payer BC ==
[2024-05-01] MEDS: ACETAMINOPHEN 1000 MG/100 ML BAG IVPB ONE (17:53)
[2024-05-01] MEDS: ONDANSETRON 4 MG/2 ML VIAL IVPUSH ONE ×2 (17:53→21:48)
[2024-05-01] MEDS ORDERED: ACETAMINOPHEN INJECTION 100 ML ONE (17:54)
[2024-05-01] MEDS ORDERED: ONDANSETRON 4 MG/2 ML VIAL ONE ×2 (18:14→21:39)
[2024-05-01 18:28] LABS: HEMATOCRIT 42.3 % (32.4-45.2); HEMOGLOBIN 13.7 G/dL (10.7-15.3); MCH 29.1 pg (25.7-33.7); MCHC 32.4 g/dl (32.0-36.0); MEAN CELL VOLUME 89.6 fl (80-96); MEAN PLT VOLUME 9.1 fl (7.5-11.1); PLATELET COUNT 331.4 10^3/uL (134-434); RBC 4.72 10^6/uL (3.60-5.2); RDW 15.8 % (11.6-15.6); WHITE BLOOD COUNT 13.7 10^3/uL (4.0-10.8)
[2024-05-01 18:36] LABS: ALBUMIN 4.4 g/dl (3.4-5.0); CALCIUM 9.4 mg/dl (8.5-10.1); CREATININE 0.8 mg/dl (0.6-1.3); POTASSIUM 4.2 mmol/L (3.5-5.1); TOT PROT 7.3 g/dl (6.4-8.2)
[2024-05-01] MEDS: morphine CARPU-JECT 2 MG/1 ML DISP.SYRIN IVPUSH ONE ×2 (19:15→21:48)
[2024-05-01 19:37] LABS: PLATELET ESTIMATE ADEQUATE
[2024-05-01 19:58] LABS: BILIRUBIN,TOTAL 0.5 mg/dL (0.2-1)
[2024-05-01 20:53] LABS: INR 1.02 (0.83-1.09); PROTHROMBIN TIME (PATIENT) 11.6 SEC (9.7-13.0)
[2024-05-01] MEDS: PIPERACILLIN/TAZOB 4.5 GM 4.5 GM in DEXTROSE 5%-WATER 100 ML IVPB ONE (22:22)
[2024-05-02 03:28] VITALS: BMI 26.0
[2024-05-02] MEDS: DEXTROSE 5%-0.45% SALINE 1,000 ML IV SCH (05:44)
[2024-05-02] MEDS: LEVOTHYROXINE SODIUM 100 MCG 5 ML VIAL IVPUSH SCH (09:27)
[2024-05-02 09:30] LABS: ALBUMIN 3.5 g/dl (3.4-5.0); CALCIUM 8.2 mg/dl (8.5-10.1); CREATININE 0.8 mg/dl (0.6-1.3); POTASSIUM 3.6 mmol/L (3.5-5.1); TOT PROT 5.5 g/dl (6.4-8.2)
[2024-05-02] MEDS ORDERED: LEVOTHYROXINE SODIUM 100 MCG 5 ML VIAL IVPUSH SCH (10:00)
[2024-05-02 10:01] LABS: BASO % 0.3 % (0-2.0); EOS % 1.7 % (0-4.5); HEMATOCRIT 35.4 % (32.4-45.2); HEMOGLOBIN 11.3 GM/dL (10.7-15.3); LYMPH % 32.2 % (8-40); MCH 28.3 pg (25.7-33.7); MCHC 31.8 g/dl (32.0-36.0); MEAN PLT VOLUME 8.7 fl (7.5-11.1); MONO % 10.1 % (3.8-10.2); NEUT % 55.7 % (42.8-82.8); PLATELET COUNT 265 10^3/uL (134-434); RBC 3.97 M/mm3 (3.60-5.2); WHITE BLOOD COUNT 6.2 K/mm3 (4.0-10.0)
[2024-05-02 11:24] LABS: BILIRUBIN,TOTAL 0.3 mg/dL (0.2-1)
[2024-05-02] MEDS: ACETAMINOPHEN 1000 MG/100 ML BAG IVPB PRN (18:03)
[2024-05-03 05:56] VITALS: RESP 16
[2024-05-03 08:59] LABS: ALBUMIN 3.6 g/dl (3.4-5.0); BILIRUBIN,TOTAL 0.4 mg/dl (0.2-1); CALCIUM 8.7 mg/dl (8.5-10.1); CREATININE 0.7 mg/dl (0.6-1.3); POTASSIUM 3.5 mmol/L (3.5-5.1); TOT PROT 5.8 g/dl (6.4-8.2)
[2024-05-03 10:01] LABS: BASO % 0.6 % (0-2.0); EOS % 2.6 % (0-4.5); HEMATOCRIT 35.4 % (32.4-45.2); HEMOGLOBIN 11.4 GM/dL (10.7-15.3); LYMPH % 37.9 % (8-40); MCH 28.7 pg (25.7-33.7); MCHC 32.2 g/dl (32.0-36.0); MEAN PLT VOLUME 8.7 fl (7.5-11.1); MONO % 10.3 % (3.8-10.2); NEUT % 48.6 % (42.8-82.8); PLATELET COUNT 273 10^3/uL (134-434); RBC 3.98 M/mm3 (3.60-5.2); RDW 16.1 % (11.6-15.6); WHITE BLOOD COUNT 4.5 K/mm3 (4.0-10.0)
[2024-05-03 10:41] VITALS: BP 128/74; PULSE 76; TEMP 98
== END 2024-05-03 12:14 | disposition home or self-care (01) | DRG 390 ==
LOC: FER 17:00 → FM/S 21:52 → UNDOADMIN 22:04 → FM/S 22:04
PROVIDERS: ADMIT Internal Medicine
DX: K56.690 Other partial intestinal obstruction (principal); I10 Essential (primary) hypertension; E03.9 Hypothyroidism, unspecified; E78.5 Hyperlipidemia, unspecified; E11.9 Type 2 diabetes mellitus without complications; F41.8 Other specified anxiety disorders; M81.0 Age-related osteoporosis without current pathological fracture
CPT/HCPCS: 0241U-QW; 36415; 74019-TC-FY; 74177-TC; 80053; 83690; 84439; 84443; 85025; 85027; 85610; 86850; 86900; 86901; 87086; 99285-25; J0131; Q9967